=== PATIENT | female | born 1955 | race African-American/Black ===

== ENCOUNTER 2019-05-23 08:08 | Emergency (ER) | payer MEDICAID ==
[~2019-05-23] VITALS: Ht 157.5 cm; Wt 63.0 kg
[2019-05-23 11:15] VITALS: BP 162/78
== END 2019-05-23 11:25 | disposition home or self-care (01) ==
LOC: ER 08:08
DX: R07.89 Other chest pain (principal); R06.00 Dyspnea, unspecified; J44.9 Chronic obstructive pulmonary disease, unspecified; E11.9 Type 2 diabetes mellitus without complications
CPT/HCPCS: 71045; 93005; 99283

== ENCOUNTER 2020-01-20 22:20 | Emergency (ER) | payer MEDICAID ==
[~2020-01-20] VITALS: Ht 152.4 cm; Wt 58.0 kg
[2020-01-21] MEDS ORDERED: ACETAMINOPHEN 325MG TABLET PO ONE (00:15)
[2020-01-21 01:40] VITALS: BP 135/81
== END 2020-01-21 01:52 | disposition home or self-care (01) ==
LOC: ER 22:20
DX: M54.5 Low back pain (principal); E11.9 Type 2 diabetes mellitus without complications
CPT/HCPCS: 99283

== ENCOUNTER 2020-04-27 01:51 | Emergency (ER) | payer MEDICAID, OTHER ==
[~2020-04-27] VITALS: Ht 157.5 cm; Wt 59.1 kg
[2020-04-27] MEDS ORDERED: ACETAMINOPHEN 325MG TABLET PO ONE (02:30)
[2020-04-27] MEDS ORDERED: MELO5CAP3 PO (03:20)
[2020-04-27 03:38] VITALS: BP 125/90
== END 2020-04-27 03:38 | disposition home or self-care (01) ==
LOC: ER 01:51
DX: M79.661 Pain in right lower leg (principal); G89.29 Other chronic pain; E11.9 Type 2 diabetes mellitus without complications; J45.909 Unspecified asthma, uncomplicated
CPT/HCPCS: 73502; 73552; 82962; 99284

== ENCOUNTER 2020-06-23 09:14 | Emergency (ER) | payer MEDICAID ==
[~2020-06-23] VITALS: Ht 167.6 cm; Wt 64.0 kg
[~2020-06-23 09:14] MED LIST: MELO5CAP3 PO
[2020-06-23] MEDS ORDERED: IPRATROPIUM BROMIDE (0.02%) 0.5MG/2.5ML NEB HHN STA (09:30)
[2020-06-23] MEDS ORDERED: ALBUTEROL (0.083%) 2.5MG/3ML NEB HHN STA (09:30)
[2020-06-23] MEDS ORDERED: PREDNISONE 20MG TABLET PO STA (09:30)
[2020-06-23 10:10] VITALS: BP 108/65
[2020-06-23] MEDS ORDERED: AZIT250T12 MT (10:13)
[2020-06-23] MEDS ORDERED: P20 MT (10:13)
[2020-06-23] MEDS ORDERED: ALBU6.7H9 INH (10:13)
== END 2020-06-23 14:21 | disposition home or self-care (01) ==
LOC: ER 09:49
DX: J45.901 Unspecified asthma with (acute) exacerbation (principal); F17.200 Nicotine dependence, unspecified, uncomplicated; E11.9 Type 2 diabetes mellitus without complications; Z98.890 Other specified postprocedural states
CPT/HCPCS: 71045; 94640; 99283; J7512; Z7610

== ENCOUNTER 2020-07-31 02:06 | Emergency (ER) | payer MEDICAID ==
[~2020-07-31] VITALS: Ht 165.1 cm; Wt 71.0 kg
[~2020-07-31 02:06] MED LIST changes: +ALBU6.7H9 INH; +AZIT250T12 MT; +P20 MT
[2020-07-31 02:15] VITALS: BP 121/75
[2020-07-31] MEDS ORDERED: ALBUTEROL (0.083%) 2.5MG/3ML NEB HHN STA (02:51)
[2020-07-31] MEDS ORDERED: IPRATROPIUM BROMIDE (0.02%) 0.5MG/2.5ML NEB HHN STA (02:51)
[2020-07-31] MEDS ORDERED: ACETAMINOPHEN 325MG TABLET PO ONE (03:00)
[2020-07-31 03:13] LABS: HEMATOCRIT. 41.9 % (36.0-48.0); HEMOGLOBIN. 14.7 g/dL (12.0-16.0); MEAN CORPUSCULAR HEMOGLOBIN 37.5 pg (28.0-32.0); MEAN CORPUSCULAR VOLUME 106.5 fL (81.0-99.0); MEAN PLATELET VOLUME 8.7 fl (7.4-10.4); PLATELET 162 x1000/uL (130-400); RED BLOOD CELL COUNT 3.93 mill/uL (4.2-5.4); RED CELL DISTRIBUTION WIDTH 13.9 % (11.6-14.6)
[2020-07-31 03:20] LABS: CHLORIDE 109 mEq/L (98-107)
[2020-07-31 03:23] LABS: PROTHROMBIN TIME 10.4 sec (9.6-11.0)
[2020-07-31] MEDS ORDERED: ALBU6.7H9 INH (03:55)
[2020-07-31] MEDS ORDERED: ACET650T37 MT (03:55)
[2020-07-31] MEDS ORDERED: BENZ-16 MT (03:55)
[2020-07-31 04:43] LABS: PLATELET ESTIMATE NORMAL
== END 2020-07-31 04:12 | disposition home or self-care (01) ==
LOC: ER 02:06
DX: J45.901 Unspecified asthma with (acute) exacerbation (principal); E11.9 Type 2 diabetes mellitus without complications; I49.9 Cardiac arrhythmia, unspecified; Z98.890 Other specified postprocedural states
CPT/HCPCS: 36415; 71045; 80053; 83880; 84484; 85025; 85610; 93005; 94640; 99285; Z7610

== ENCOUNTER 2020-10-13 02:38 | Emergency (ER) | payer OTHER, MEDICAID ==
[~2020-10-13] VITALS: Ht 165.1 cm; Wt 56.0 kg
[~2020-10-13 02:38] MED LIST changes: +ACET650T37 MT; -AZIT250T12 MT; +BENZ-16 MT; -P20 MT
[2020-10-13] MEDS ORDERED: IBUPROFEN 600MG TABLET PO STA (03:28)
[2020-10-13 04:08] LABS: BASOPHILS % 0.7 % (0.0-2.0); EOSINOPHILS % 2.5 % (0.0-5.0); HEMATOCRIT. 41.8 % (36.0-48.0); HEMOGLOBIN. 14.7 g/dL (12.0-16.0); LYMPHOCYTES % 66.7 % (20.0-50.0); MEAN CORPUSCULAR VOLUME 105.5 fL (81.0-99.0); MONOCYTES % 6.2 % (2.0-8.0); NEUTROPHILS % 23.9 % (40.0-76.0); PLATELET 164 x1000/uL (130-400); RED BLOOD CELL COUNT 3.96 mill/uL (4.2-5.4); RED CELL DISTRIBUTION WIDTH 12.4 % (11.6-14.6)
[2020-10-13 04:14] LABS: CHLORIDE 109 mEq/L (98-107)
[2020-10-13 04:27] LABS: ETHANOL BLOOD 49 mg/dL
[2020-10-13 04:29] VITALS: BP 133/86
[2020-10-13] MEDS ORDERED: HYDROCODONE/ACETAMINOPHEN 5/325MG TABLET PO ONE ×2 (04:30→06:00)
[2020-10-13] MEDS ORDERED: TOPUD MT (05:49)
[2020-10-13] MEDS ORDERED: CYCL5TAB MT (09:08)
== END 2020-10-13 06:32 | disposition home or self-care (01) ==
LOC: ER 03:04
DX: M79.604 Pain in right leg (principal); M79.605 Pain in left leg; E11.9 Type 2 diabetes mellitus without complications; I10 Essential (primary) hypertension; J45.909 Unspecified asthma, uncomplicated; Z88.6 Allergy status to analgesic agent; Z79.899 Other long term (current) drug therapy; Z98.890 Other specified postprocedural states
CPT/HCPCS: 36415; 71045; 80053; 80320; 85025; 99284; G0480

== ENCOUNTER 2020-10-13 07:47 | Emergency (ER) | payer OTHER, MEDICAID ==
[~2020-10-13] VITALS: Ht 160 cm; Wt 61.0 kg
[~2020-10-13 07:47] MED LIST changes: +TOPUD MT
[2020-10-13 07:53] VITALS: BP 159/105
[2020-10-13] MEDS ORDERED: HYDROCODONE/ACETAMINOPHEN 5/325MG TABLET PO ONE (08:15)
[2020-10-13] MEDS ORDERED: CYCL5TAB MT (09:08)
== END 2020-10-13 10:25 | disposition home or self-care (01) ==
LOC: ER 07:47
DX: M79.604 Pain in right leg (principal); I10 Essential (primary) hypertension; E11.9 Type 2 diabetes mellitus without complications; J45.909 Unspecified asthma, uncomplicated; Z88.6 Allergy status to analgesic agent; Z98.890 Other specified postprocedural states
CPT/HCPCS: 73552; 99283

== ENCOUNTER 2020-10-18 03:23 | Emergency (ER) | payer OTHER ==
[~2020-10-18] VITALS: Ht 157.5 cm; Wt 50.0 kg
[~2020-10-18 03:23] MED LIST changes: +CYCL5TAB MT
[2020-10-18 03:25] VITALS: BP 146/82
[2020-10-18] MEDS ORDERED: TOPUD PO (11:14)
== END 2020-10-18 05:33 | disposition left against medical advice (07) ==
LOC: ER 03:33
DX: M79.18 Myalgia, other site (principal); Z53.21 Procedure and treatment not carried out due to patient leaving prior to being seen by health care provider
CPT/HCPCS: 99283

== ENCOUNTER 2020-10-18 10:04 | Emergency (ER) | payer MEDICAID, OTHER ==
[~2020-10-18] VITALS: Ht 160 cm; Wt 61.0 kg
[2020-10-18] MEDS ORDERED: HYDROCODONE/ACETAMINOPHEN 5/325MG TABLET PO ONE (11:00)
[2020-10-18 11:08] VITALS: BP 175/101
[2020-10-18] MEDS ORDERED: TOPUD PO (11:14)
== END 2020-10-18 11:41 | disposition home or self-care (01) ==
LOC: ER 10:21
DX: M79.604 Pain in right leg (principal); J45.909 Unspecified asthma, uncomplicated; E11.9 Type 2 diabetes mellitus without complications; Z79.899 Other long term (current) drug therapy; Z88.6 Allergy status to analgesic agent
CPT/HCPCS: 99283

== ENCOUNTER 2020-10-29 02:32 | Emergency (ER) | payer MEDICAID, OTHER ==
[~2020-10-29] VITALS: Ht 160 cm; Wt 50.0 kg
[~2020-10-29 02:32] MED LIST changes: +TOPUD PO
[2020-10-29] MEDS ORDERED: ACETAMINOPHEN WITH CODEINE 300/30MG TABLET PO ONE (03:00)
[2020-10-29 03:10] VITALS: BP 131/87
== END 2020-10-29 04:33 | disposition home or self-care (01) ==
LOC: ER 02:32
DX: G89.29 Other chronic pain (principal); M79.661 Pain in right lower leg; I10 Essential (primary) hypertension; E11.9 Type 2 diabetes mellitus without complications; J45.909 Unspecified asthma, uncomplicated; Z59.0 Homelessness; Z88.6 Allergy status to analgesic agent
CPT/HCPCS: 99283

== ENCOUNTER 2020-11-16 01:43 | Emergency (ER) | payer OTHER ==
[~2020-11-16] VITALS: Ht 167.6 cm; Wt 65.0 kg
[2020-11-16] MEDS ORDERED: ACETAMINOPHEN 325MG TABLET PO ONE (02:15)
[2020-11-16 02:19] VITALS: BP 155/83
[2020-11-16 02:38] LABS: BASOPHILS % 0.1 % (0.0-2.0); HEMATOCRIT. 44.2 % (36.0-48.0); LYMPHOCYTES % 27.9 % (20.0-50.0); MEAN CORPUSCULAR HEMOGLOBIN 37.3 pg (28.0-32.0); MEAN CORPUSCULAR VOLUME 109.8 fL (81.0-99.0); MEAN PLATELET VOLUME 9.2 fl (7.4-10.4); MONOCYTES % 9.6 % (2.0-8.0); NEUTROPHILS % 62.4 % (40.0-76.0); PLATELET 199 x1000/uL (130-400); RED BLOOD CELL COUNT 4.02 mill/uL (4.2-5.4); RED CELL DISTRIBUTION WIDTH 13.3 % (11.6-14.6)
[2020-11-16 03:13] LABS: CLARITY URINE CLEAR (CLEAR); COLOR URINE YELLOW (YELLOW); KETONES URINE NEGATIVE (NEGATIVE); LEUKOCYTE ESTERASE URINE 1+ (NEGATIVE); NITRITE URINE NEGATIVE (NEGATIVE); OCCULT BLOOD URINE TRACE (NEGATIVE); PROTEIN URINE 1+ (NEGATIVE); SPECIFIC GRAVITY URINE 1.023 (1.005-1.030); UROBILINOGEN URINE 0.2 E.U./dL (0.2-1.0)
== END 2020-11-16 04:33 | disposition home or self-care (01) ==
LOC: ER 01:43
DX: B34.9 Viral infection, unspecified (principal); Z88.6 Allergy status to analgesic agent
CPT/HCPCS: 36415; 71045; 80048; 81003; 85025; 93005; 99285

== ENCOUNTER 2021-06-14 00:37 | Emergency (ER) | payer MEDICAID, OTHER ==
[~2021-06-14] VITALS: Ht 165.1 cm; Wt 70.0 kg
[2021-06-14 00:42] VITALS: BP 136/70
[2021-06-14] MEDS ORDERED: ACETAMINOPHEN 325MG TABLET PO STA (02:55)
[2021-06-14 03:41] LABS: BASOPHILS % 0.8 % (0.0-2.0); EOSINOPHILS % 1.7 % (0.0-5.0); HEMOGLOBIN. 16.6 g/dL (12.0-16.0); LYMPHOCYTES % 59.6 % (20.0-50.0); MEAN CORPUSCULAR HEMOGLOBIN 34.7 pg (28.0-32.0); MEAN CORPUSCULAR VOLUME 98.3 fL (81.0-99.0); MEAN PLATELET VOLUME 9.4 fl (7.4-10.4); MONOCYTES % 5.8 % (2.0-8.0); NEUTROPHILS % 32.1 % (40.0-76.0); PLATELET 174 x1000/uL (130-400); RED BLOOD CELL COUNT 4.78 mill/uL (4.2-5.4); RED CELL DISTRIBUTION WIDTH 12.6 % (11.6-14.6)
[2021-06-14 04:00] LABS: CHLORIDE 102 mEq/L (98-107)
[2021-06-14 04:11] LABS: ETHANOL BLOOD 37 mg/dL
[2021-06-14] MEDS ORDERED: ACET-2708 PO (06:30)
== END 2021-06-14 06:43 | disposition home or self-care (01) ==
LOC: ER 00:54
DX: R07.89 Other chest pain (principal); M79.10 Myalgia, unspecified site; F19.10 Other psychoactive substance abuse, uncomplicated; Z88.6 Allergy status to analgesic agent
CPT/HCPCS: 36415; 71045; 80053; 80320; 83880; 84484; 85025; 99284; G0480

== ENCOUNTER 2021-07-13 01:37 | Emergency (ER) | payer OTHER ==
[~2021-07-13] VITALS: Ht 167.6 cm; Wt 77.0 kg
[~2021-07-13 01:37] MED LIST changes: +ACET-2708 PO; +ACET-3163 MT; -ACET650T37 MT
[2021-07-13] MEDS ORDERED: NITROGLYCERIN 0.4MG TABLET SL SL PRN (02:15)
[2021-07-13] MEDS ORDERED: ASPIRIN 81MG TABLET PO ONE (02:15)
[2021-07-13 02:41] LABS: BASOPHILS % 0.6 % (0.0-2.0); EOSINOPHILS % 1.2 % (0.0-5.0); HEMATOCRIT. 47.1 % (36.0-48.0); HEMOGLOBIN. 16.3 g/dL (12.0-16.0); MEAN CORPUSCULAR HEMOGLOBIN 34.7 pg (28.0-32.0); MEAN CORPUSCULAR VOLUME 100.2 fL (81.0-99.0); MEAN PLATELET VOLUME 8.8 fl (7.4-10.4); MONOCYTES % 7.8 % (2.0-8.0); NEUTROPHILS % 37.4 % (40.0-76.0); PLATELET 174 x1000/uL (130-400)
[2021-07-13 02:53] LABS: CHLORIDE 106 mEq/L (98-107)
[2021-07-13 04:22] VITALS: BP 114/72
== END 2021-07-13 04:40 | disposition home or self-care (01) ==
LOC: ER 01:37
DX: R07.89 Other chest pain (principal); J45.909 Unspecified asthma, uncomplicated; E11.9 Type 2 diabetes mellitus without complications; I10 Essential (primary) hypertension
CPT/HCPCS: 36415; 71045; 80053; 82962; 83880; 84484; 85025; 93005; 99285

== ENCOUNTER 2021-08-05 02:09 | Emergency (ER) | payer OTHER ==
[~2021-08-05] VITALS: Ht 170.2 cm; Wt 68.0 kg
[2021-08-05 02:14] VITALS: BP 164/85
[2021-08-05] MEDS ORDERED: IBUPROFEN 600MG TABLET PO ONE (03:15)
== END 2021-08-05 03:00 | disposition home or self-care (01) ==
LOC: ER 02:09
DX: G89.29 Other chronic pain (principal); M79.604 Pain in right leg; F10.229 Alcohol dependence with intoxication, unspecified; F14.10 Cocaine abuse, uncomplicated; E11.9 Type 2 diabetes mellitus without complications; I10 Essential (primary) hypertension; J44.9 Chronic obstructive pulmonary disease, unspecified; Y90.9 Presence of alcohol in blood, level not specified
CPT/HCPCS: 99283